=== PATIENT | female | born 1950 | race Caucasian/White ===

== ENCOUNTER → 2019-01-16 10:48 | Outpatient (CLI) | payer MEDICARE, OTHER, SELFPAY ==
[2019-01-16 11:59] LABS: Free T4, Direct Thyroxine 1.32 ng/dL (0.78-2.19)
[2019-01-16 12:13] LABS: Thyroid Stimulating Hormone 0.86 uIU/mL (0.47-4.68)
== END ==
PROVIDERS: PCP Student in an Organized Health Care Education/Training Program; Visit Provider Student in an Organized Health Care Education/Training Program
DX: E03.9 Hypothyroidism, unspecified (principal); E55.9 Vitamin D deficiency, unspecified
CPT/HCPCS: 36415; 82306; 84439; 84443

== ENCOUNTER → 2019-02-13 13:46 | Outpatient (CLI) | payer MEDICARE, OTHER, SELFPAY | PROVIDERS: PCP Student in an Organized Health Care Education/Training Program; Visit Provider Student in an Organized Health Care Education/Training Program | DX: Z13.820 Encounter for screening for osteoporosis (principal); Z78.0 Asymptomatic menopausal state; E07.9 Disorder of thyroid, unspecified; Z90.722 Acquired absence of ovaries, bilateral; Z87.891 Personal history of nicotine dependence | CPT/HCPCS: 77080; 77081 ==

== ENCOUNTER → 2019-02-26 09:43 | Outpatient (CLI) | payer MEDICARE, OTHER, SELFPAY ==
--- NOTE | 2019-02-26 09:54 | DI.CT.S_ITS ---
PROCEDURE: CT LUMBAR SPINE WO CON INDICATIONS: Low back pain with Right-sided leg weakness TECHNIQUE: Noncontrast 3 mm thick sections acquired from the T12 level to the sacrum. Sagittal and coronal reformats were constructed. For radiation dose reduction, the following was used: automated exposure control. COMPARISON: [facility], , [id number] W PEL IF PERFORMED, 11/30/2017, 10:01. FINDINGS: Image quality: Diagnostic, with note made of motion artifact. Bones: No acute vertebral body compression fractures. No suspicious lytic or blastic bony lesions. Central spinal caliber is of normal overall caliber. No pars defects. There is minimal levoconvex lumbar scoliotic curvature seen. No significant AP alignment abnormality is seen. A right hip arthroplasty can be seen on the photoflash powder mixer image. T12-L1: Unremarkable. L1-L2: No significant abnormality is seen. L2-L3: The disc height is well-preserved. Mild generalized disc bulge is seen. Ysil-ya-ihblapoz bilateral neural foraminal narrowing can be seen. Ttgv-dz-htrfegne central canal narrowing is seen, as on series 4 image 43. L3-L4: The disc height is well preserved. Mild to moderate disc bulge is seen. There is moderate right-sided and mild to moderate left-sided facet hypertrophy seen. Mild bilateral neural foraminal narrowing is seen. Rsxe-nt-oakjnwll central canal narrowing is seen. L4-L5: The disc height is well-preserved. Moderate disc bulge is seen, with a central/right disc protrusion, as on series 4 image 67. At least moderate facet hypertrophy is seen. Tgvy-ep-koyzuacz bilateral neural foraminal narrowing is seen, left worse than right. L5-S1: The disc height is well-preserved. Vacuum disc phenomenon is seen at this level. Mild generalized disc bulge is seen. Moderate facet joint hypertrophy is seen. There is moderate right-sided and mild left-sided neural foraminal narrowing seen. Mild central canal narrowing is seen. Soft tissues: No retroperitoneal masses or hematomas. Visualized aorta is normal in caliber. Atherosclerotic calcification is noted. Cholecystectomy clips are seen. IMPRESSION: Lumbar spine degenerative changes are seen, which are most prominent at the L4-L5 level. Dictated by: Mayank Luu M.D. on 02/26/2019 at 9:39 Approved by: Mayank Luu M.D. on 02/26/2019 at 9:43
== END ==
PROVIDERS: PCP Student in an Organized Health Care Education/Training Program; Visit Provider Student in an Organized Health Care Education/Training Program
DX: M54.5 Low back pain (principal); M47.26 Other spondylosis with radiculopathy, lumbar region
CPT/HCPCS: 72131

== ENCOUNTER 2019-03-22 06:38 | Day surgery (SDC) | payer MEDICARE, OTHER, SELFPAY ==
[2019-03-22] VITALS (8 sets, daily range): BP systolic 76–113; BP diastolic 47–63; PULSE 55–65; RESP 12–16; TEMP 36.3–36.5; O2SAT 95–96; BMI 40.6
--- NOTE | 2019-03-22 07:30 | PM.HP.1 ---
History of Present Illness Date Patient Seen: 03/22/19 Time Patient Seen: 07:30 Chief complaint: [id number] Narrative: 69yo F for surveillance colonoscopy. Has had two scopes 5 years apart, first found polyps but she does not believe second did. Maternal GM of CRC in her 80s and mother had numerous polyps. No symptoms in patient; she has long standing IBS but no recent changes. Patient History Medical History COPD (chronic obstructive pulmonary disease) (Chronic) Cardiac arrhythmia (Chronic) Eczema (Chronic) History of degenerative joint disease (Chronic) Hypertension (Chronic) Hypothyroidism (Chronic) Osteoarthritis (Chronic) Plantar warts (Chronic) Tubular adenoma (Chronic) Asthma (Resolved) Surgical History Anesthesia (Resolved) Colon polyps (Resolved ~2007) History of colonoscopy (Resolved) History of ectopic (Resolved) History of cataract removal with insertion of prosthetic lens History of hip replacement (~2012) History of third molar tooth extraction (~1971) Status post cholecystectomy (~1989) Status post hysterectomy (~2005) Family History (Updated 05/31/14 @ 00:00 by Conversion Provider) Father Alcoholism Heart disease Hypertension Stroke Grandmother Colorectal cancer Mother Colon polyps Social History household members: spouse Smoking Status: Former smoker Family & Social History Family History Father Alcoholism Heart disease Hypertension Stroke Grandmother Colorectal cancer Mother Colon polyps Social History: household members spouse Tobacco & Substance use: Smoking Status Former smoker Meds Home Medications Medication Instructions Recorded Confirmed Type CA PANTOTHENATE/FE/FOLIC ACI 1 tab PO Q DAY #0 02/23/12 02/21/19 History (#UNICAP PLUS IRON) CALCIUM CARBONATE/VITAMIN D3 1 ctb PO Q DAY #0 02/23/12 02/21/19 History (Calcium 600 With Vit D Chew Tb) FLAXSEED (FLAXSEED OIL) 1 cap PO Q DAY #0 02/23/12 02/21/19 History [VITAMIN C] Q DAY #0 02/23/12 02/21/19 History biotin #0 05/23/13 02/21/19 History albuterol sulfate HFA 90 2 inhalation INHALATION Q4-6H PRN 12/12/18 02/21/19 Rx mcg/actuation aerosol inhaler #1 each atorvastatin 20 mg tablet 20 mg PO HS #90 tab 12/12/18 02/21/19 Rx fluoxetine 20 mg capsule 20 mg PO QDAY #90 cap 12/12/18 02/21/19 Rx fluticasone propionate 100 100 mcg INHALATION BID #60 each 12/12/18 02/21/19 Rx mcg/actuation blister powder for inhalation metoprolol tartrate 50 mg tablet 50 mg PO BID #180 tab 12/12/18 02/21/19 Rx levothyroxine 112 mcg tablet 112 mcg PO QDAY #90 tab 01/26/19 02/21/19 Rx Allergies Allergy/AdvReac Type Severity Reaction Status Date / Time Penicillins [PENICILLINS] Allergy Unknown Unverified 02/21/19 15:19 hydrocodone [HYDROCODONE] AdvReac Mild NAUSEA, Unverified 02/21/19 15:19 DIZZINESS Review of Systems Constitutional Constitutional: Reports as per HPI Exam Vital Signs (past 8 hours): - 03/22/19 07:19 Temperature 97.4 F L Pulse Rate 65 Respiratory Rate 16 Blood Pressure 113/63 Pulse Oximetry 96 Oxygen Delivery Method Room Air Narrative Exam Narrative: AAO, NAD, morbidly obese female EOMI, MMM; 1mm dark spot on lower lip unlabored RA soft, nt/nd MAEW Assessment & Plan (1) History of colon polyps: Current visit: Yes Status: Acute Assessment & Plan narrative: - surveillance colonoscopy --> all R/B/A discussed and pt wishes to proceed - pointed out dark spot on lip, not highly concerning but pt had not noticed --> encouraged visit to derm for skin check as patient has not seen one and notes that in aging she has many changing and new skin spots
[2019-03-22] MEDS: SODIUM CHLORIDE 0.9% 1,000 ML 200 ML IV (08:00)
[2019-03-22] MEDS: fentaNYL 250 MCG/5 ML INJ IV (08:12)
[2019-03-22] MEDS: MIDAZOLAM 5 MG/5 ML VIAL IV (08:13)
--- NOTE | 2019-03-22 08:30 | SUR.PHASEI ---
assumed care of pt at this time. pt sitting up, drinking coffee and talking to RN. pt abd soft and denies any pain/discomfort at this time.
--- NOTE | 2019-03-22 14:47 | PM.OP.ENDO ---
Operative Date/Time/Diagnoses Date of procedure: 03/22/19 Time of procedure: 08:28 Pre-op diagnosis: History of polyps Post-op diagnosis: same Procedure & Clinicians Study performed: Surveillance Colonoscopy Same procedure as scheduled: Yes Indications: 69yo F with history of colon polyps and CRC in a maternal grandmother presents for surveillance colonscopy. Surgeon: Katie Buckley Procedure Notes SCOAP/Timeout: 747 Procedure in detail: After obtaining informed consent, the patient was brought to the GI suite and placed in the left lateral decubitus position on the examination table. After placement of appropriate monitors, the patient was given incremental doses of Versed and Fentanyl until an appropriate level of sedation was achieved. A time out was held per SCOAP protocol. A digital rectal examination was performed and did not reveal any masses or obstructing lesions but small external hemorrhoids are noted. The colonoscope was gently passed into the patient's anus and the entire colon navigated to the level of the cecum with minimal difficulty. Prep was adequate. Once in the cecum, the scope was slowly withdrawn being sure to go before and beyond all mucosal folds and prominences as able to get a thorough examination. No masses or polyps are noted. No other abnormalities are noted. At the level of the rectal vault, the scope was retroflexed and the internal anal canal was examined. The scope was straightened and air aspirated from the colon. The instrument was removed from the patient's body and the procedure was concluded. The patient was allowed to awaken from sedation without difficulty and taken to the post-anesthesia care unit in good condition. Scope withdrawal time: 10 min Sedation minutes: 24 Specimen(s): none sent Complications: none Impression: No abnormalities. FU in 5 years. Despite sedation of 5mg of versed and 175mg of fentanyl, patient was fairly awake and uncomfortable through much of the procedure and may benefit from propofol at future procedures. Recommendations: Colonscopy in 5 years Follow up: as needed Disposition: PACU
== END 2019-03-22 09:20 | disposition home or self-care (01) ==
PROVIDERS: PCP Student in an Organized Health Care Education/Training Program; Visit Provider Surgery
PROC: 0DJD8ZZ Inspection of Lower Intestinal Tract, Via Natural or Artificial Opening Endoscopic (ICD-10-PCS; CPT 45378; principal; 2019-03-22 07:45)
DX: Z86.010 Personal history of colon polyps (principal); Z80.0 Family history of malignant neoplasm of digestive organs; J44.9 Chronic obstructive pulmonary disease, unspecified; I49.9 Cardiac arrhythmia, unspecified; I10 Essential (primary) hypertension; E03.9 Hypothyroidism, unspecified
CPT/HCPCS: G0105; 99152; J2250; J3010

== ENCOUNTER → 2019-08-13 12:41 | Outpatient (CLI) | payer MEDICARE, OTHER, SELFPAY ==
--- NOTE | 2019-08-13 12:42 | DI.MG.S_ITS ---
BILATERAL DIGITAL SCREENING MAMMOGRAM 3D/2D WITH CAD: 08/13/2019 CLINICAL: Routine screening. Comparison is made to exams dated: 08/08/2017 mammogram, 08/05/2016 mammogram, 07/25/2015 mammogram, 07/24/2014 mammogram, and 06/27/2013 mammogram - [facility]. The tissue of both breasts is predominantly fatty. Current study was also evaluated with a Computer Aided Detection (CAD) system. No significant masses, calcifications, or other findings are seen in either breast. There has been no significant interval change. IMPRESSION: NEGATIVE There is no mammographic evidence of malignancy. A 1 year screening mammogram is recommended. This exam was interpreted at Station ID: [id number]. NOTE: For mammograms, a report in lay terms will be sent to the patient. Approximately 15% of breast malignancies will not be visualized mammographically. In the management of a palpable breast mass, a negative mammogram must not discourage biopsy of a clinically suspicious lesion. Electronically Signed By: Quinton espitia/leonardo:08/13/2019 13:35:30 letter sent: Normal Exam ACR BI-RADS Category 1: Negative [id number]
== END ==
PROVIDERS: PCP Student in an Organized Health Care Education/Training Program; Visit Provider Student in an Organized Health Care Education/Training Program
DX: Z12.31 Encounter for screening mammogram for malignant neoplasm of breast (principal)
CPT/HCPCS: 77063; 77067

== ENCOUNTER 2019-10-16 12:21 | Emergency (ER) | payer MEDICARE, OTHER, SELFPAY ==
--- NOTE | 2019-10-16 12:25 | DI.RAD.S_ITS ---
PROCEDURE: XR CHEST 1V INDICATIONS: exertional dyspnea TECHNIQUE: One view of the chest was acquired. COMPARISON: [facility], CHEST 1 VIEW, 03/24/2014, 6:32. [facility], CHEST 2 VIEW, 01/16/2008, 9:33. FINDINGS: Surgical changes and devices: None. Lungs and pleura: Lungs are clear. No pleural effusions or pneumothorax. Mediastinum: Mediastinal contours appear normal. Heart size is normal. Bones and chest wall: No suspicious bony lesions. Overlying soft tissues appear unremarkable. IMPRESSION: Normal for age, source of current exertional dyspnea symptoms is not seen. Dictated by: Raphael Cox M.D. on 10/16/2019 at 12:56 Approved by: Raphael Cox M.D. on 10/16/2019 at 12:57
[2019-10-16 12:40] LABS: Add Manual Diff / Slide Review NO; Basophils Absolute Auto 100 /uL (0-100); Eosinophils Absolute Auto 100 /uL (0-450); Eosinophils Percent Auto 1.6 % (2-4); Hematocrit 39.5 % (36-46); Hemoglobin 13.3 g/dL (12.0-16.0); Lymphocytes Absolute Auto 1800 /uL (1100-4500); Lymphocytes Percent Auto 19.9 % (25-40); Mean Corpuscular HGB Conc 33.7 % (30-36); Mean Corpuscular Hemoglobin 32.6 PG (26-34); Mean Corpuscular Volume 96.6 fL (80-100); Monocytes Absolute Auto 500 /uL (0-900); Neutrophils Absolute Auto 6300 /uL (1500-7000); Neutrophils Percent Auto 71.5 % (50-75); Platelet Count 365 X10^3/uL (150-400); Red Blood Cell Count 4.09 X10^6/uL (4.0-5.2); Red Cell Distribution Width 12.9 % (11.6-14.8); White Blood Cell Count 8.8 X10^3/uL (4.5-11.0)
[2019-10-16 12:42] VITALS: BP 153/70; PULSE 76; RESP 14; TEMP 36.8; O2SAT 96
--- NOTE | 2019-10-16 12:46 | ED_ITS ---
HPI - Weakness <Mirela Tinsley PA-C - Last Filed: 10/16/19 14:57> General Chief complaint: Weakness Stated complaint: SOB, PALPITATIONS, FATIGUE, TINGLING IN HAND/FEET Time Seen by Provider: 10/16/19 12:24 Source: patient and other (Clinic PRIMARY CLINICIAN) Mode of arrival: Ambulatory Limitations: no limitations History of Present Illness HPI Narrative: This 69-year-old female is sent from her primary care clinic due to concern for cardiac issue. They were concerned about 4-5 day history of exertional dyspnea. Patient states that for the last 4-5 days, she has been feeling more generalized fatigue even though she is getting enough sleep. She states that she runs ?out of steam? rather than just running at breath, for example walking through the house she will want to sit down and rest, she states not necessarily due to her breathing, just feels tired all over. She does have a history of asthma and COPD, states that she does have a rescue inhaler at home but has not felt the need to use it. She has not had any cough or fever, nor any recent illness or exposure. She denies any chest pain. She states that she does have a history of paroxysmal tachycardia but this tends to be well co ntrolled on her current blood pressure medication, she states no recent symptoms. She denies any nausea, abdominal pain or vomiting and states she has been eating normally. She states that she has not noted any new edema or pain in her extremities. She denies any urinary symptoms. She states that 2 and half weeks ago after she had been doing some lifting and bending, she had some left gluteal area pain but that seemed to resolve with time. She does have a history of some lumbar disc disease. She denies any other new complaints on systems review, states her main concern was noticing generalized fatigue Related Data Home Medications Medication Instructions Recorded Confirmed CA PANTOTHENATE/FE/FOLIC ACI 1 tab PO Q DAY #0 02/23/12 10/16/19 (#UNICAP PLUS IRON) CALCIUM CARBONATE/VITAMIN D3 1 ctb PO Q DAY #0 02/23/12 10/16/19 (Calcium 600 With Vit D Chew Tb) FLAXSEED (FLAXSEED OIL) 1 cap PO Q DAY #0 02/23/12 10/16/19 [VITAMIN C] Q DAY #0 02/23/12 10/16/19 biotin #0 05/23/13 10/16/19 atorvastatin [Lipitor] 20 mg PO BEDTIME 10/16/19 10/16/19 fluoxetine 20 mg PO DAILY 10/16/19 10/16/19 levothyroxine 112 mcg PO DAILY 10/16/19 10/16/19 Previous Rx's Medication Instructions Recorded albuterol sulfate 90 mcg/actuation 2 inhalation INHALATION Q4-6H PRN 12/12/18 aerosol inhaler #1 each metoprolol tartrate 50 mg tablet 50 mg PO BID #180 tab 12/12/18 fluticasone propionate 100 100 mcg INHALATION BID #60 each 06/25/19 mcg/actuation blister powder for inhalation Allergies Allergy/AdvReac Type Severity Reaction Status Date / Time Penicillins [PENICILLINS] Allergy Unknown Unverified 10/16/19 11:45 hydrocodone [HYDROCODONE] AdvReac Mild NAUSEA, Unverified 10/16/19 11:45 DIZZINESS Review of Systems <Mirela Tinsley PA-C - Last Filed: 10/16/19 14:57> Review of Systems ROS Unobtainable: All systems reviewed & are unremarkable except as noted in HPI and below Patient History <Mirela Tinsley PA-C - Last Filed: 10/16/19 14:57> Medical History Asthma (Resolved) Cardiac arrhythmia (Chronic) COPD (chronic obstructive pulmonary disease) (Chronic) Eczema (Chronic) History of degenerative joint disease (Chronic) Hypertension (Chronic) Hypothyroidism (Chronic) Osteoarthritis (Chronic) Plantar warts (Chronic) Tubular adenoma (Chronic) Social History household members: spouse Smoking Status: Former smoker Substance Use Type: does not use Exam <Mirela Tinsley PA-C - Last Filed: 10/16/19 14:57> Narrative Exam Narrative: GENERAL APPEARANCE: Patient resting comfortably, in no distress. HEENT: PERRL, EOMI, normal oropharynx NECK: Supple, no masses noted LUNGS: Clear to auscultation bilaterally. No cough on exam HEART: Rate and rhythm regular, normal S1 and S2, no S3 or S4. ABDOMEN: Soft, nontender, nondistended, bowel sounds present x 4 quadrants, no masses palpable EXTREMITIES: No edema, no cyanosis, numerous varicosities noted DERMATOLOGIC: No exanthem NEUROLOGIC: Alert and oriented with normal speech and coordination Initial Vital Signs Initial Vital Signs: Vital Signs Temperature 98.2 F 10/16/19 12:42 Pulse Rate 76 10/16/19 12:42 Respiratory Rate 14 10/16/19 12:42 Blood Pressure 153/70 H 10/16/19 12:42 Pulse Oximetry 96 10/16/19 12:42 <Karin Witt DO - Last Filed: 10/17/19 07:27> Initial Vital Signs Initial Vital Signs: Vital Signs Temperature 98.2 F 10/16/19 12:42 Pulse Rate 76 10/16/19 12:42 Respiratory Rate 14 10/16/19 12:42 Blood Pressure 153/70 H 10/16/19 12:42 Pulse Oximetry 96 10/16/19 12:42 Course <Mirela Tinsley PA-C - Last Filed: 10/16/19 14:57> Course Additional Information: Patient states she has had generalized fatigue off and on for about the last 5 days which cause her to want to rest with activity. She states this is more generalized sensation rather than isolated dyspnea. She has not felt a need to use her inhaler. No acute findings on cardiac workup today, no change with nebulizer treatment. She has not had any acute changes, so discussed reasonable for her to monitor at home however does need follow-up with PCP office for further evaluation and determine whether further workup such as echocardiogram may be needed, or whether medication changes may be needed as her resting heart rate is on the low side. She is agreeable with this plan as well as plan to return if any acute changes or worsening symptoms in the interim Orders Ordered: Discontinued Medications Albuterol/Ipratropium (Duoneb) 3 ml INH NOW ONE Stop: 10/16/19 12:47 Last Admin: 10/16/19 13:07 Dose: 3 ml Documented by: LATOYA Vital Signs Vital signs: Vital Signs - 8 hr 10/16/19 12:42 10/16/19 13:28 10/16/19 13:34 Temperature 98.2 F Pulse Rate 76 57 L 56 L Respiratory Rate 14 23 16 Blood Pressure 153/70 H Blood Pressure [Right Arm] 136/86 Pulse Oximetry 96 100 97 10/16/19 14:04 Temperature Pulse Rate 55 L Respiratory Rate 14 Blood Pressure Blood Pressure [Right Arm] 121/47 L Pulse Oximetry 97 <Karin Witt DO - Last Filed: 10/17/19 07:27> Orders Ordered: Discontinued Medications Albuterol/Ipratropium (Duoneb) 3 ml INH NOW ONE Stop: 10/16/19 12:47 Last Admin: 10/16/19 13:07 Dose: 3 ml Documented by: LATOYA Vital Signs Vital signs: Vital Signs - 8 hr 10/16/19 12:42 10/16/19 13:28 10/16/19 13:34 Temperature 98.2 F Pulse Rate 76 57 L 56 L Respiratory Rate 14 23 16 Blood Pressure 153/70 H Blood Pressure [Right Arm] 136/86 Pulse Oximetry 96 100 97 10/16/19 14:04 Temperature Pulse Rate 55 L Respiratory Rate 14 Blood Pressure Blood Pressure [Right Arm] 121/47 L Pulse Oximetry 97 MDM - Weakness <Mirela Tinsley PA-C - Last Filed: 10/16/19 14:57> Lab Data Attestation: I reviewed the patient's lab results. Result diagrams: 10/16/19 12:30 10/16/19 12:30 Labs: Lab Results 10/16/19 10/16/19 10/16/19 Range/Units 12:30 12:30 12:30 WBC 8.8 (4.5-11.0) X10^3/uL RBC 4.09 (4.0-5.2) X10^6/uL Hgb 13.3 (12.0-16.0) g/dL Hct 39.5 (36-46) % MCV 96.6 (80-100) fL MCH 32.6 (26-34) PG MCHC 33.7 (30-36) % RDW 12.9 (11.6-14.8) % Plt Count 365 (150-400) X10^3/uL Neut % (Auto) 71.5 (50-75) % Lymph % (Auto) 19.9 L (25-40) % Alpine % (Auto) 6.0 (3-14) % Eos % (Auto) 1.6 L (2-4) % Baso % (Auto) 1.0 (0-2) % Neut # (Auto) 6300 (3424-6219) /uL Lymph # (Auto) 1800 (4009-4445) /uL Alpine # (Auto) 500 (0-900) /uL Eos # (Auto) 100 (0-450) /uL Baso # (Auto) 100 (0-100) /uL Sodium 141 (137-145) mmol/L Potassium 4.9 (3.4-5.1) mmol/L Chloride 104 (98-107) mmol/L Carbon Dioxide 26 (22-32) mmol/L BUN 20 H (7-17) mg/dL Creatinine 1.10 H (0.52-1.04) mg/dL Estimated GFR 49.4 L (>60) mL/min BUN/Creatinine Ratio 18.2 (6-22) Glucose 100 (80-110) mg/dL Calcium 9.7 (8.4-10.2) mg/dL Magnesium 1.9 (1.6-2.3) mg/dL Total Bilirubin 0.6 (0.2-1.3) mg/dL AST 32 (14-36) IU/L ALT 20 (<35) IU/L Alkaline Phosphatase 140 H (38-126) U/L Total Creatine Kinase 47 (30-135) U/L CK-MB (CK-2) TNP CK-MB (CK-2) Rel Index TNP Troponin I < 0.012 (0.01-0.034) ng/mL B-Natriuretic Peptide < 100 (<100) Total Protein 7.6 (6.3-8.2) g/dL Albumin 4.5 (3.5-5.0) g/dL Globulin 3.1 (1.7-4.1) g/dL Albumin/Globulin Ratio 1.5 (1.0-2.8) Imaging Data Chest x-ray: Radiologist's impression: [address] [id number] XRay Report Signed Patient: Naty Pacheco JMR#: [id number] : 1Acct:[id number] Age/Sex: 69 / FDate of Service: 10/16/19 Loc: ED Accession Number: [id number] Procedure: XR chest 1V Ordering Provider: Mirela Tinsley P.A-C PROCEDURE: XR CHEST 1V INDICATIONS: exertional dyspnea TECHNIQUE: One view of the chest was acquired. COMPARISON: [facility], , CHEST 1 VIEW, 03/24/2014, 6:32. [facility], , CHEST 2 VIEW, 01/16/2008, 9:33. FINDINGS: Surgical changes and devices: None. Lungs and pleura: Lungs are clear. No pleural effusions or pneumothorax. Mediastinum: Mediastinal contours appear normal. Heart size is normal. Bones and chest wall: No suspicious bony lesions. Overlying soft tissues appear unremarkable. IMPRESSION: Normal for age, source of current exertional dyspnea symptoms is not seen. Dictated by: Raphael Cox M.D. on 10/16/2019 at 12:56 Approved by: Raphael Cox M.D. on 10/16/2019 at 12:57 <Karin Witt DO - Last Filed: 10/17/19 07:27> Lab Data Labs: Lab Results 10/16/19 10/16/19 10/16/19 Range/Units 12:30 12:30 12:30 WBC 8.8 (4.5-11.0) X10^3/uL RBC 4.09 (4.0-5.2) X10^6/uL Hgb 13.3 (12.0-16.0) g/dL Hct 39.5 (36-46) % MCV 96.6 (80-100) fL MCH 32.6 (26-34) PG MCHC 33.7 (30-36) % RDW 12.9 (11.6-14.8) % Plt Count 365 (150-400) X10^3/uL Neut % (Auto) 71.5 (50-75) % Lymph % (Auto) 19.9 L (25-40) % Alpine % (Auto) 6.0 (3-14) % Eos % (Auto) 1.6 L (2-4) % Baso % (Auto) 1.0 (0-2) % Neut # (Auto) 6300 (6065-9166) /uL Lymph # (Auto) 1800 (2312-7263) /uL Alpine # (Auto) 500 (0-900) /uL Eos # (Auto) 100 (0-450) /uL Baso # (Auto) 100 (0-100) /uL Sodium 141 (137-145) mmol/L Potassium 4.9 (3.4-5.1) mmol/L Chloride 104 (98-107) mmol/L Carbon Dioxide 26 (22-32) mmol/L BUN 20 H (7-17) mg/dL Creatinine 1.10 H (0.52-1.04) mg/dL Estimated GFR 49.4 L (>60) mL/min BUN/Creatinine Ratio 18.2 (6-22) Glucose 100 (80-110) mg/dL Calcium 9.7 (8.4-10.2) mg/dL Magnesium 1.9 (1.6-2.3) mg/dL Total Bilirubin 0.6 (0.2-1.3) mg/dL AST 32 (14-36) IU/L ALT 20 (<35) IU/L Alkaline Phosphatase 140 H (38-126) U/L Total Creatine Kinase 47 (30-135) U/L CK-MB (CK-2) TNP CK-MB (CK-2) Rel Index TNP Troponin I < 0.012 (0.01-0.034) ng/mL B-Natriuretic Peptide < 100 (<100) Total Protein 7.6 (6.3-8.2) g/dL Albumin 4.5 (3.5-5.0) g/dL Globulin 3.1 (1.7-4.1) g/dL Albumin/Globulin Ratio 1.5 (1.0-2.8) Discharge Plan Departure Patient Disposition: Home Clinical Impression: Fatigue Qualifiers: Fatigue type: unspecified Qualified Code(s): R53.83 - Other fatigue Asthma Qualifiers: Asthma severity: moderate Asthma persistence: unspecified Asthma complication type: uncomplicated Qualified Code(s): J45.909 - Unspecified asthma, uncomplicated Discharge Date/Time: 10/16/19 14:17 Instructions: DI for Fatigue Activity Restrictions/Additional Instructions: The source of your fatigue is not clear today. There were no acute problems found on your lab work, chest x-ray or EKG, and since you are not feeling acutely worse it is reasonable to monitor at home. Please call your primary care office today and schedule a follow-up in the next few days so that you can determine whether further testing should be done or whether any medication dos age adjustments may be needed. As we discussed, you should return here if you have any acutely worsening symptoms or new symptoms such as chest pain in the interim. Prescriptions: No Action CA PANTOTHENATE/FE/FOLIC ACI (#UNICAP PLUS IRON) 1 tab PO Q DAY Qty: 0 RF: 0 [VITAMIN C] Q DAY Qty: 0 RF: 0 CALCIUM CARBONATE/VITAMIN D3 (Calcium 600 With Vit D Chew Tb) 1 ctb PO Q DAY Qty: 0 RF: 0 FLAXSEED (FLAXSEED OIL) 1 cap PO Q DAY Qty: 0 RF: 0 biotin 5 MG tablet Qty: 0 RF: 0 Flovent Diskus 100 mcg/actuation blister with device 100 mcg INHALATION BID Qty: 60 RF: 11 albuterol sulfate [Ventolin HFA] 90 mcg/actuation HFA aerosol inhaler 2 inhalation INHALATION Q4-6H PRN (Reason: shortness of breath or wheezing) Qty: 1 RF: 11 metoprolol tartrate 50 mg tablet 50 mg PO BID Qty: 180 RF: 3 atorvastatin [Lipitor] 20 mg tablet 20 mg PO BEDTIME RF: 0 fluoxetine 20 mg capsule 20 mg PO DAILY RF: 0 levothyroxine 112 mcg tablet 112 mcg PO DAILY RF: 0 Referrals: Bradley Sam MD [Primary Care Provider] -
[2019-10-16 12:50] LABS: Creatine Kinase 47 U/L (30-135); Magnesium 1.9 mg/dL (1.6-2.3)
[2019-10-16 12:51] LABS: Alanine Aminotransferase 20 IU/L (<35); Albumin 4.5 g/dL (3.5-5.0); Albumin Globulin Ratio 1.5 (1.0-2.8); Alkaline Phosphatase 140 U/L (38-126); Aspartate Aminotransferase 32 IU/L (14-36); BUN Creatinine Ratio 18.2 (6-22); Bilirubin Total 0.6 mg/dL (0.2-1.3); Blood Urea Nitrogen 20 mg/dL (7-17); Calcium 9.7 mg/dL (8.4-10.2); Carbon Dioxide 26 mmol/L (22-32); Chloride 104 mmol/L (98-107); Estimated Glomerular Filt Rate 49.4 mL/min (>60); Globulin 3.1 g/dL (1.7-4.1); Glucose 100 mg/dL (80-110); HEMOLYSIS 19 (0-50); Potassium 4.9 mmol/L (3.4-5.1); Sodium 141 mmol/L (137-145); Total Protein 7.6 g/dL (6.3-8.2)
[2019-10-16 13:02] LABS: B Type Natriuretic Peptide < 100 (<100)
[2019-10-16 13:03] LABS: Troponin I < 0.012 ng/mL (0.01-0.034)
[2019-10-16] MEDS: ALBUTEROL/IPRATROPIUM 3 ML AMPUL INH (13:07)
[2019-10-16 13:28] VITALS: BP 136/86; PULSE 57; RESP 23; O2SAT 100
[2019-10-16 13:34] VITALS: PULSE 56; RESP 16; O2SAT 97
[2019-10-16 14:04] VITALS: BP 121/47; PULSE 55; RESP 14; O2SAT 97
== END 2019-10-16 14:17 | disposition home or self-care (01) ==
PROVIDERS: Emergency Provider Internal Medicine; PCP Student in an Organized Health Care Education/Training Program
DX: R53.83 Other fatigue (principal); J45.909 Unspecified asthma, uncomplicated; R06.00 Dyspnea, unspecified
CPT/HCPCS: 36415; 71045; 80053; 82550; 83735; 83880; 84484; 85025; 93005; 94150; 94640; 99283; 99285

== ENCOUNTER → 2020-12-19 12:17 | Outpatient (CLI) | payer MEDICARE, OTHER, SELFPAY ==
[2020-12-19] MEDS: COVID-19 VACC #1, MRNA(MOD) 100 MCG/0.5 ML VIAL IM (12:28)
== END ==
PROVIDERS: PCP Student in an Organized Health Care Education/Training Program; Visit Provider Internal Medicine
DX: Z23 Encounter for immunization (principal)
CPT/HCPCS: 0011A; 91301

== ENCOUNTER → 2021-01-16 12:41 | Outpatient (CLI) | payer MEDICARE, OTHER, SELFPAY ==
[2021-01-16] MEDS: COVID-19 VACC #2, MRNA(MOD) 100 MCG/0.5 ML VIAL IM (12:48)
== END ==
PROVIDERS: PCP Student in an Organized Health Care Education/Training Program; Visit Provider Internal Medicine
DX: Z23 Encounter for immunization (principal)
CPT/HCPCS: 0012A; 91301

== ENCOUNTER → 2021-04-12 15:56 | Outpatient (CLI) | payer MEDICARE, OTHER, SELFPAY | PROVIDERS: PCP Student in an Organized Health Care Education/Training Program; Referring Provider Physician Assistant; Visit Provider Physician Assistant | DX: N30.01 Acute cystitis with hematuria (principal) | CPT/HCPCS: 87077; 87086; 87186 ==

== ENCOUNTER → 2021-07-24 10:53 | Outpatient (CLI) | payer MEDICARE, OTHER, SELFPAY ==
[2021-07-24 11:44] LABS: COVID19 -Nasal RAPID Negative (Negative)
== END ==
PROVIDERS: PCP Student in an Organized Health Care Education/Training Program; Referring Provider Internal Medicine; Visit Provider Internal Medicine
DX: Z20.822 Contact with and (suspected) exposure to COVID-19 (principal)
CPT/HCPCS: 87635; C9803

== ENCOUNTER → 2021-07-24 10:55 | Outpatient (CLI) | payer MEDICARE, OTHER, SELFPAY ==
--- NOTE | 2021-07-29 08:20 | PM.PFT.1 ---
Pulmonary Function Test Referral & Results Date Patient Seen: 07/24/21 Requesting provider: Bradley Sam Results: The spirometry demonstrates an FVC of 2.65 L which is 70% of predicted. The FEV1 was measured at 1.73 L which is 60% of predicted. The FEV1/FVC ratio was 65 which is 85% of predicted. Interpretation: This study demonstrates mild obstructive lung disease based on reduction FEV1. Shape a flow volume loop also supports diagnosis of obstructive lung disease Compared to PFTs performed in August 2017, current study is minimally changed. Previous FEV1 was 1.97 L currently 1.73 L. on previous study patient had only minimal benefit following bronchodilator and lung volumes were probably preserved. Clinical correlation suggested
== END ==
PROVIDERS: PCP Student in an Organized Health Care Education/Training Program; Referring Provider Student in an Organized Health Care Education/Training Program; Visit Provider Student in an Organized Health Care Education/Training Program
DX: J44.9 Chronic obstructive pulmonary disease, unspecified (principal); Z87.891 Personal history of nicotine dependence; Z20.822 Contact with and (suspected) exposure to COVID-19
CPT/HCPCS: 87635; 94010; C9803

== ENCOUNTER → 2021-08-24 11:28 | Outpatient (CLI) | payer MEDICARE, OTHER, SELFPAY ==
--- NOTE | 2021-08-24 11:29 | DI.MG.S_ITS ---
BILATERAL DIGITAL SCREENING MAMMOGRAM 3D/2D WITH CAD: 08/24/2021 CLINICAL: Routine screening. Comparison is made to exams dated: 08/13/2019 mammogram, 08/08/2017 mammogram, and 08/05/2016 mammogram - [facility]. The tissue of both breasts is predominantly fatty. Current study was also evaluated with a Computer Aided Detection (CAD) system. No significant masses, calcifications, or other findings are seen in either breast. There has been no significant interval change. IMPRESSION: NEGATIVE There is no mammographic evidence of malignancy. A 1 year screening mammogram is recommended. This exam was interpreted at Station ID: [id number]. NOTE: For mammograms, a report in lay terms will be sent to the patient. Approximately 15% of breast malignancies will not be visualized mammographically. In the management of a palpable breast mass, a negative mammogram must not discourage biopsy of a clinically suspicious lesion. Electronically Signed By: Jesús Foster M.D., jr/leonardo:08/24/2021 11:52:39 letter sent: Normal Exam ACR BI-RADS Category 1: Negative 3341F
== END ==
PROVIDERS: PCP Student in an Organized Health Care Education/Training Program; Referring Provider Student in an Organized Health Care Education/Training Program; Visit Provider Student in an Organized Health Care Education/Training Program
DX: Z12.31 Encounter for screening mammogram for malignant neoplasm of breast (principal); Z78.0 Asymptomatic menopausal state; E07.9 Disorder of thyroid, unspecified; Z90.722 Acquired absence of ovaries, bilateral; Z87.891 Personal history of nicotine dependence
CPT/HCPCS: 77063; 77067; 77080

== ENCOUNTER → 2021-09-25 11:17 | Outpatient (CLI) | payer MEDICARE, OTHER, SELFPAY ==
[2021-09-25] MEDS: COVID-19 VACC #3, MRNA(MOD) 50 MCG/0.25 ML VIAL IM (11:18)
== END ==
PROVIDERS: PCP Student in an Organized Health Care Education/Training Program; Visit Provider Internal Medicine
DX: Z23 Encounter for immunization (principal)
CPT/HCPCS: 0013A; 91301

== ENCOUNTER → 2022-05-05 10:56 | Outpatient (CLI) | payer MEDICARE, OTHER, SELFPAY ==
[2022-05-05 12:31] LABS: Blood Urea Nitrogen 19 mg/dL (7-17); Carbon Dioxide 27 mmol/L (22-32); Chloride 104 mmol/L (98-107); Cholesterol 178 mg/dL (140-199); Estimated Glomerular Filt Rate 53 mL/min (>60); Glucose 101 mg/dL (80-110); HDL Cholesterol 42 mg/dL (40-60); HEMOLYSIS < 15 (0-50); LDL Cholesterol Calculated 109 mg/dL (<100); Potassium 4.6 mmol/L (3.4-5.1); Sodium 139 mmol/L (137-145); Triglycerides 136 mg/dL (35-150)
[2022-05-05 13:48] LABS: Free T4, Direct Thyroxine 0.72 ng/dL (0.78-2.19)
== END ==
PROVIDERS: PCP Student in an Organized Health Care Education/Training Program; Referring Provider Student in an Organized Health Care Education/Training Program; Visit Provider Student in an Organized Health Care Education/Training Program
DX: I10 Essential (primary) hypertension (principal); E78.5 Hyperlipidemia, unspecified; E03.9 Hypothyroidism, unspecified
CPT/HCPCS: 36415; 80048; 80061; 84439; 84443

== ENCOUNTER → 2022-08-11 17:49 | Outpatient (CLI) | payer MEDICARE, OTHER, SELFPAY ==
[2022-08-11 18:23] LABS: Blood Urea Nitrogen 21 mg/dL (7-17); Calcium 9.4 mg/dL (8.4-10.2); Carbon Dioxide 26 mmol/L (22-32); Chloride 101 mmol/L (98-107); Cholesterol 158 mg/dL (140-199); Estimated Glomerular Filt Rate > 60 mL/min (>60); Glucose 105 mg/dL (80-110); HDL Cholesterol 35 mg/dL (40-60); HEMOLYSIS < 15 (0-50); LDL Cholesterol Calculated 93 mg/dL (<100); Potassium 3.9 mmol/L (3.4-5.1); Sodium 139 mmol/L (137-145); Triglycerides 150 mg/dL (35-150)
[2022-08-11 18:39] LABS: Free T3, Triiodothyronine Free 3.35 pg/mL (2.77-5.27); Free T4, Direct Thyroxine 1.47 ng/dL (0.78-2.19)
[2022-08-11 18:52] LABS: Thyroid Stimulating Hormone 2.03 uIU/mL (0.47-4.68)
== END ==
PROVIDERS: PCP Student in an Organized Health Care Education/Training Program; Referring Provider Student in an Organized Health Care Education/Training Program; Visit Provider Student in an Organized Health Care Education/Training Program
DX: E03.9 Hypothyroidism, unspecified (principal); I10 Essential (primary) hypertension; N18.31 Chronic kidney disease, stage 3a; E78.00 Pure hypercholesterolemia, unspecified
CPT/HCPCS: 36415; 80048; 80061; 84439; 84443; 84481

== ENCOUNTER → 2022-08-19 16:04 | Outpatient (CLI) | payer MEDICARE, OTHER, SELFPAY ==
--- NOTE | 2022-08-19 16:05 | DI.ECHO.S_ITS ---
[facility]---------+ [facility] +---------+ : : [address] : : : : [id number] : : : : Phone: [phone]---------+ Echocardiogram Report + + :Name: JAYDE NOYOLA Study Date: 08/19/2022 Height: 70 in : :[facility] ReadingLocation: Weight: 267 lb : : Gender: Female BSA: 2.4 m2 : :: 1950 Age: 72 yrs BP: 152/92 mmHg: :Reason For Study: Arrhythmia, SVT : :Ordering Physician: ARON, : :SAAD Performed By: Vinnie Lewis : :Referring: SAAD SHARP : + + Interpretation Summary The ejection fraction is estimated to be 55-60%. Grade I diastolic dysfuncton The right ventricle is normal in size and function. The right ventricular systolic pressure is estimated to be at least 18 mmHg based on an estimated right atrial pressure of 3 mm Hg. The ascending aorta is mildly enlarged 4.1cm. No significant valvular disease. Procedure: A two-dimensional transthoracic echocardiogram with color flow and Doppler was performed. The study quality was technically adequate. There is no prior echocardiogram noted for this patient. The patient was in normal sinus rhythm during the exam. Left Ventricle: The left ventricle is normal in size and wall thickness. Left ventricular systolic function is normal. The ejection fraction is estimated to be 55-60%. There are no focal wall motion abnormalities. Grade I diastolic dysfunciton. Right Ventricle: The right ventricle is normal in size and function. Atria: Both atria are normal in size. The interatrial septum grossly appears intact with no obvious evidence for an atrial septal defect. The atrial septum is aneurysmal. Mitral Valve: There is mild mitral annular calcification. There is no mitral regurgitation noted. Aortic Valve: The aortic valve is normal in structure and function. No aortic regurgitation is present. Tricuspid Valve: The tricuspid valve is normal in structure and function. There is a trace or physiologic amount of tricuspid regurgitation. The right ventricular systolic pressure is estimated to be at least 18 mmHg based on an estimated right atrial pressure of 3 mm Hg. Pulmonic Valve: The pulmonic valve is normal in structure and function. There is no pulmonic valvular regurgitation. Great Vessels: The aortic root is normal size. The ascending aorta is mildly enlarged. The IVC is of normal diameter and collapses greater than 50% with a sniff. This suggests a low right atrial pressure of 3 mm Hg. Pericardium/ Pleura There is no pericardial effusion. There is no pleural effusion. MMode/2D Measurements & Calculations LVIDd: 5.1 cm LVOT diam: 2.2 cm LVIDs: 3.5 cm Ao root diam: 3.5 cm FS: 31.4 % asc Aorta Diam: 4.1 cm IVSd: 1.0 cm LVPWd: 1.0 cm LV moss. diameter/BSA (cm/m^2): 2.2 LV sys. diameter/BSA (cm/m^2): 1.5 LA dimension: 3.7 cm RA long axis: 5.2 cm LA A2 area: 17.2 cm2 LA A4 area: 16.9 cm2 LA length (vol): 5.1 cm LA vol: 48.6 ml LA vol index: 20.6 ml/m2 TAPSE_phl: 2.2 cm Doppler Measurements & Calculations Ao V2 max: 136.0 cm/sec LVOT Max Ant: 112.0 cm/sec Ao V2 mean: 95.1 cm/sec LV V1 max P.0 mmHg Ao max P.0 mmHg LV V1 VTI: 23.5 cm Ao mean P.0 mmHg JUAN FRANCISCO(I,D): 3.6 cm2 Ao V2 VTI: 25.1 cm JUAN FRANCISCO(V,D): 3.1 cm2 sev ratio: 0.94 JUAN FRANCISCO indexed to BSA (cm^2/m^2): 1.5 MV E max ant: 46.7 cm/sec TR max ant: 195.0 cm/sec MV A max ant: 86.1 cm/sec TR max P.2 mmHg MV E/A: 0.54 Med Peak E' Ant: 5.2 cm/sec E/E' med: 8.9 Lat Peak E' Ant: 7.5 cm/sec E/E' lat: 6.2 E/e' average: 7.6 MV dec time: 0.30 sec SV(LVOT): 89.3 ml AV VR_phl: 0.82 JUAN FRANCISCO(VTI)/BSA_phl: 1.5 MV P1/2t-pr_phl: 89.0 msec Reading Physician:PM
== END ==
PROVIDERS: PCP Student in an Organized Health Care Education/Training Program; Referring Provider Student in an Organized Health Care Education/Training Program; Visit Provider Student in an Organized Health Care Education/Training Program
DX: R68.89 Other general symptoms and signs (principal); I47.1 Supraventricular tachycardia; I77.89 Other specified disorders of arteries and arterioles
CPT/HCPCS: 93306

== ENCOUNTER → 2022-08-23 13:26 | Outpatient (CLI) | payer MEDICARE, OTHER, SELFPAY ==
--- NOTE | 2022-08-30 14:40 | PM.CARDMON.1 ---
[employer] Report Referral & Results Date Patient Seen: 08/23/22 Requesting provider: Bradley Sam Indication: SVT Duration of monitoring (days): 3 Diary information: There were 8 patient triggered events and 7 patient diary entries All of these patient events were variably associated with (within 45 seconds) sinus rhythm, PACs, and SVT Data: Minimum heart rate identified was 54 beats per minute at 07:59 on 08/25/2022 Maximum sinus heart rate was 133 beats per minute at 18:35 on 08/23/2022 Maximum overall heart rate was 190 beats per minute at 14:08 on 08/23/2022 during a run of SVT Less than 1% of identified beats were ventricular or supraventricular ectopic in origin, which would classify them as rare. There were 43 runs of SVT with the fastest being a 12 minute 40 second run at a rate of 190 beats per minute this was also the longest run There were no pauses of 3 seconds or longer, or episodes of atrial fibrillation identified on this study Impression: This study demonstrates SVT as a possible source of patient's symptoms including a 12+ minute run as above Overall the number of patient events was relatively rare with 43 in the 36 hour period of time Clinical correlation suggested
== END ==
PROVIDERS: PCP Student in an Organized Health Care Education/Training Program; Referring Provider Student in an Organized Health Care Education/Training Program; Visit Provider Student in an Organized Health Care Education/Training Program
DX: I47.1 Supraventricular tachycardia (principal); R68.89 Other general symptoms and signs
CPT/HCPCS: 93242; 93244

== ENCOUNTER → 2022-09-13 11:51 | Outpatient (CLI) | payer MEDICARE, OTHER, SELFPAY ==
[2022-09-13 12:40] LABS: COVID19 -Nasal RAPID Negative (Negative)
--- NOTE | 2022-09-13 14:20 | PM.TREADMILL ---
Cardiac Stress Test Report Referral & Results Date Patient Seen: 09/13/22 Requesting provider: Bradley Sam Indication: Tachycardia Rest ECG: Unremarkable Procedure Note: After both written and verbal informed consent the patient had an IV started by the diagnostic imaging RN, and then was hooked up to the treadmill monitoring system. The Lexiscan material, and then the Cardiolite tracer, were administered sequentially. An additional 3 min was spent monitoring the patient while supine on the gurney. The patient had a normal response to all infused materials. Impression: Normal response to infuse materials, please see perfusion imaging for details regarding possible ischemia Please note: Actual ECG tracings can be found in the PACS system.
--- NOTE | 2022-09-14 18:08 | DI.NM.S_ITS ---
DATE OF SERVICE: 09/13/2022 PROCEDURE: Pharmacological perfusion study INDICATION: Fatigue, SVT, exercise intolerance. RADIOPHARMACEUTICAL: 25.7 millicurie technetium-99m Myoview IV was injected at stress and 24.8 millicurie technetium-99m Myoview IV was injected at rest. CARDIAC STRESS: The patient underwent IV Lexiscan perfusion study under the supervision of an attending staff using standard intravenous Lexiscan, as per protocol. She remained hemodynamically stable. Baseline blood pressure 140/80 and heart rate 82 beats per minute. Baseline rhythm sinus with right bundle branch block and diffuse low-voltage complexes. During stress, no new convincing ischemic changes or new significant arrhythmias seen. RAW DATA: There is significant breast shadow seen. There is increased subdiaphragmatic activity. The patient's weight is 264 pounds. GATED STUDY: Resting LV ejection fraction 75 and stress LV ejection fraction 79 percent. No obvious wall motion abnormalities. Resting end-diastolic volume 104 mL. TID ratio 0.91, which is within normal limits. Lung/heart ratio 0.34, which is within normal limits. MYOCARDIAL PERFUSION SCAN: Stress supine, resting supine and stress prone images were compared to each other. The stress supine and resting supine images revealed moderate-size, moderate to severely decreased perfusion of inferior wall extending into the inferoapex, which got improved during stress prone images predominantly in the base to mid inferior wall, however patient remained to have significant perfusion defect in the distal inferior wall extending into the inferoapex in the stress prone images, as well. CONCLUSION: This is an abnormal myocardial perfusion study consistent with a predominantly fixed distal inferior wall and inferoapical defect. Differential diagnosis distal inferior wall, inferoapical infarction, however, the patient's weight is 264 pounds. There is increased subdiaphragmatic activity and large breast shadow seen, which is engulfing the whole heart during raw images. Left ventricular function is preserved. No wall motion abnormality in the distal inferior wall or in the inferoapical segments. Hence, this could be persistent tissue attenuation artifact. No transient ischemic dilatation. In absence of reversible ischemia and preserved left ventricular function, overall low-risk myocardial perfusion scan. Correlate clinically. JuniorLaurah - Sonia/kameron doc#: [id number]/job#: [id number] dd: 09/14/2022 16:58:00 dt: 09/14/2022 17:56:00 DICTATING MD/COPIES TO: Abdulkadir Arriaga MD COPIES MNE: EDWIN;
== END ==
PROVIDERS: PCP Student in an Organized Health Care Education/Training Program; Referring Provider Student in an Organized Health Care Education/Training Program; Visit Provider Student in an Organized Health Care Education/Training Program
DX: I47.1 Supraventricular tachycardia (principal); R94.39 Abnormal result of other cardiovascular function study; R68.89 Other general symptoms and signs; R53.83 Other fatigue; Z20.822 Contact with and (suspected) exposure to COVID-19
CPT/HCPCS: 78452; 87635; 93016; 93017; 93018; A9502; J2785

== ENCOUNTER → 2022-10-18 14:39 | Outpatient (CLI) | payer MEDICARE, OTHER, SELFPAY ==
--- NOTE | 2022-10-18 | DI.MG.S_ITS ---
BILATERAL DIGITAL SCREENING MAMMOGRAM 3D/2D WITH CAD: 10/18/2022 CLINICAL: Routine screening. Comparison is made to exams dated: 08/24/2021 mammogram, 08/13/2019 mammogram, and 08/08/2017 mammogram - [facility]. There are scattered areas of fibroglandular density in both breasts (category b / 25%-50% glandular tissue). Current study was also evaluated with a Computer Aided Detection (CAD) system. No significant masses, calcifications, or other findings are seen in either breast. There has been no significant interval change. IMPRESSION: NEGATIVE There is no mammographic evidence of malignancy. A 1 year screening mammogram is recommended. Based on the Tyrer Cuzick model (a risk assessment model) the patient's lifetime risk is 4.3% and her 10 year risk is 2.9%. According to the ACR, ACS, and NCCN guidelines, an annual breast MRI exam along with mammogram is recommended if the patient's lifetime risk is 20% or greater. This exam was interpreted at Station ID: [id number]. NOTE: For mammograms, a report in lay terms will be sent to the patient. Approximately 15% of breast malignancies will not be visualized mammographically. In the management of a palpable breast mass, a negative mammogram must not discourage biopsy of a clinically suspicious lesion. Electronically Signed By: Jocelyne alonso/leonardo:10/18/2022 16:41:04 letter sent: Normal Exam ACR BI-RADS Category 1: Negative 3341F
== END ==
PROVIDERS: PCP Student in an Organized Health Care Education/Training Program; Referring Provider Student in an Organized Health Care Education/Training Program; Visit Provider Student in an Organized Health Care Education/Training Program
DX: Z12.31 Encounter for screening mammogram for malignant neoplasm of breast (principal)
CPT/HCPCS: 77063; 77067

== ENCOUNTER → 2023-07-30 11:31 | Outpatient (CLI) | payer MEDICARE, OTHER, SELFPAY ==
[2023-07-30 13:08] LABS: Add Manual Diff / Slide Review NO; Basophils Absolute Auto 100 /uL (0-100); Basophils Percent Auto 0.7 % (0-2); Eosinophils Absolute Auto 100 /uL (0-450); Eosinophils Percent Auto 1.6 % (2-4); Hematocrit 36.2 % (36-46); Hemoglobin 12.1 g/dL (12.0-16.0); Lymphocytes Absolute Auto 2100 /uL (1100-4500); Lymphocytes Percent Auto 24.8 % (25-40); Mean Corpuscular HGB Conc 33.5 % (30-36); Mean Corpuscular Hemoglobin 32.4 PG (26-34); Mean Corpuscular Volume 96.7 fL (80-100); Monocytes Absolute Auto 600 /uL (0-900); Monocytes Percent Auto 6.6 % (3-14); Neutrophils Absolute Auto 5700 /uL (1500-7000); Neutrophils Percent Auto 66.3 % (50-75); Platelet Count 460 X10^3/uL (150-400); Red Blood Cell Count 3.75 X10^6/uL (4.0-5.2); White Blood Cell Count 8.6 X10^3/uL (4.5-11.0)
[2023-07-30 13:23] LABS: Alanine Aminotransferase 30 IU/L (<35); Albumin 4.2 g/dL (3.5-5.0); Albumin Globulin Ratio 1.6 (1.0-2.8); Alkaline Phosphatase 139 U/L (38-126); Aspartate Aminotransferase 30 IU/L (14-36); BUN Creatinine Ratio 13.2 (6-22); Bilirubin Total 0.6 mg/dL (0.2-1.3); Blood Urea Nitrogen 14 mg/dL (7-17); Calcium 9.5 mg/dL (8.4-10.2); Carbon Dioxide 23 mmol/L (22-32); Chloride 100 mmol/L (98-107); Cholesterol 176 mg/dL (140-199); Estimated Glomerular Filt Rate 56 mL/min (>60); Globulin 2.7 g/dL (1.7-4.1); Glucose 108 mg/dL (80-110); HDL Cholesterol 48 mg/dL (40-60); HEMOLYSIS < 15 (0-50); LDL Cholesterol Calculated 97 mg/dL (<100); Potassium 4.6 mmol/L (3.4-5.1); Sodium 138 mmol/L (137-145); Total Protein 6.9 g/dL (6.3-8.2); Triglycerides 156 mg/dL (35-150)
[2023-07-30 13:39] LABS: Free T4, Direct Thyroxine 1.32 ng/dL (0.78-2.19)
[2023-07-30 13:52] LABS: Thyroid Stimulating Hormone 2.06 uIU/mL (0.47-4.68)
[2023-07-30 14:58] LABS: Vitamin D 25 Hydroxy (D3) 51.6 ng/mL (30.0-100.0)
== END ==
PROVIDERS: PCP Family Medicine; Referring Provider Family Medicine; Visit Provider Family Medicine
DX: E03.9 Hypothyroidism, unspecified (principal); N18.31 Chronic kidney disease, stage 3a; E78.5 Hyperlipidemia, unspecified; I10 Essential (primary) hypertension; I47.1 Supraventricular tachycardia; J44.9 Chronic obstructive pulmonary disease, unspecified
CPT/HCPCS: 36415; 80053; 80061; 82306; 84439; 84443; 84481; 85025; 86140

== ENCOUNTER → 2023-08-03 16:29 | Outpatient (CLI) | payer MEDICARE, OTHER, SELFPAY ==
[2023-08-03 20:53] LABS: Microalbumi Creatinin Ratio Ur 8.4 ug/mg CR (<30); Microalbumin Urine Random 1.7 mg/dL (0-1.6)
== END ==
PROVIDERS: PCP Family Medicine; Visit Provider Family Medicine
DX: E03.9 Hypothyroidism, unspecified (principal); E78.5 Hyperlipidemia, unspecified; I10 Essential (primary) hypertension; I47.1 Supraventricular tachycardia; J44.9 Chronic obstructive pulmonary disease, unspecified; N18.31 Chronic kidney disease, stage 3a
CPT/HCPCS: 82043; 82570

== ENCOUNTER → 2023-10-26 14:12 | Outpatient (CLI) | payer MEDICARE, OTHER, SELFPAY ==
--- NOTE | 2023-10-26 | DI.MG.S_ITS ---
BILATERAL DIGITAL SCREENING MAMMOGRAM 3D/2D WITH CAD: 10/26/2023 CLINICAL: Routine screening. Comparison is made to exams dated: 10/18/2022 mammogram, 08/24/2021 mammogram, 08/13/2019 mammogram, 08/08/2017 mammogram, and 08/05/2016 mammogram - [facility]. There are scattered areas of fibroglandular density in both breasts (category b / 25%-50% glandular tissue). Current study was also evaluated with a Computer Aided Detection (CAD) system. No significant masses, calcifications, or other findings are seen in either breast. There has been no significant interval change. IMPRESSION: NEGATIVE There is no mammographic evidence of malignancy. A 1 year screening mammogram is recommended. Based on the Tyrer Cuzick model (a risk assessment model) the patient's lifetime risk is 4.0% and her 10 year risk is 3.0%. According to the ACR, ACS, and NCCN guidelines, an annual breast MRI exam along with mammogram is recommended if the patient's lifetime risk is 20% or greater. This exam was interpreted at Station ID: [id number]. NOTE: For mammograms, a report in lay terms will be sent to the patient. Approximately 15% of breast malignancies will not be visualized mammographically. In the management of a palpable breast mass, a negative mammogram must not discourage biopsy of a clinically suspicious lesion. Electronically Signed By: Quinton espitia/leonardo:10/27/2023 08:04:57 letter sent: Normal Exam ACR BI-RADS Category 1: Negative 3341F
== END ==
PROVIDERS: PCP Family Medicine; Referring Provider Family Medicine; Visit Provider Family Medicine
DX: Z12.31 Encounter for screening mammogram for malignant neoplasm of breast (principal)
CPT/HCPCS: 77063; 77067

== ENCOUNTER → 2023-10-26 14:13 | Outpatient (CLI) | payer MEDICARE, OTHER, SELFPAY ==
--- NOTE | 2023-10-26 14:14 | DI.CT.S_ITS ---
PROCEDURE: CT LUNG LOW DOSE SCREENING INDICATIONS: Lung cancer screening TECHNIQUE: Noncontrast 2.0-2.5 mm thick sections acquired from the pulmonary apices to the posterior costophrenic angles. 7 mm thick axial MIP, and 5 mm coronal and sagittal reformats were then acquired. For radiation dose reduction, the following was used: automated exposure control, adjustment of mA and/or kV according to patient size. COMPARISON: None. FINDINGS: Image quality: Diagnostic, given the low radiation dose technique. Lungs and pleura: Right lower lobe subpleural solid pulmonary nodule versus nodular atelectasis measuring 4 mm (3/290). A few scattered subcentimeter calcified granulomas. No pleural effusion or pneumothorax. Patent central airways. Mediastinum: Heart size is normal. No pericardial effusion. No mediastinal adenopathy by size criteria. Thoracic aorta and central pulmonary arteries are normal in size. Mild calcification of the thoracic aorta. Esophagus is fluid-filled and mildly patulous. Small hiatal hernia. Bones and chest wall: No suspicious bony lesions. No vertebral body compression fractures. Moderate multilevel degenerative changes of the spine. No axillary or supraclavicular adenopathy by size criteria. No thyroid nodules which require sonographic follow up, per consensus guidelines. Upper Abdomen: Visualized upper abdomen solid organs and bowel loops demonstrate no pneumoperitoneum or acute findings. Cholecystectomy. Calcification of the abdominal aorta. IMPRESSION: 1. Right lower lobe subpleural solid pulmonary nodule versus nodular atelectasis measuring 4 mm. LUNG-RADS 2; continued annual screening, if eligible. 2. Esophagus is fluid-filled and mildly patulous which may predispose to aspiration. Dictated by: Shaq Cole M.D. on 10/26/2023 at 18:41 Approved by: Shaq Cole M.D. on 10/26/2023 at 18:51
== END ==
PROVIDERS: PCP Family Medicine; Referring Provider Family Medicine; Visit Provider Family Medicine
DX: Z12.31 Encounter for screening mammogram for malignant neoplasm of breast; Z12.2 Encounter for screening for malignant neoplasm of respiratory organs; F17.201 Nicotine dependence, unspecified, in remission
CPT/HCPCS: 71271; 77063; 77067

== ENCOUNTER → 2023-12-16 | Outpatient (CLI) | payer MEDICARE, OTHER, SELFPAY ==
--- NOTE | 2023-12-16 12:08 | DI.RAD.S_ITS ---
Bone Density Report Name: JAYDE NOYOLA Age: 73 Sex: Female Ethnicity: White Date of : 1950 Indication: postmenopausal; screening for osteoporosis; Referring Provider: JULIANA WILLIAMSON Study: Bone densitometry was performed. Exam Date: December 16, 2023 Accession number: [id number] Bone Density: Region BMD T-score Z-score Classification AP Spine(L1-L4) 1.005 -0.4 1.9 Normal Femoral Neck (Left) 0.845 0.0 1.9 Normal Total Hip (Left) 0.951 0.1 1.7 Normal Total Forearm (Left) 0.557 -0.4 1.8 Normal 1/3 Forearm (Left) 0.674 -0.3 2.0 Normal UD Forearm (Left) 0.429 -0.2 1.4 Normal World Health Organization criteria for BMD impression classify patients as: Normal (T-score at or above -1.0), Osteopenia (T-score between -1.0 and -2.5), or Osteoporosis (T-score at or below -2.5). 10-year Fracture Risk: FRAX not reported because: All T-scores for Spine Total, Hip Total, Femoral Neck at or above -1.0 Previous Exams: -- Region Exam Age BMD T-score BMD Change BMD Change Date g/cm2 vs Baseline vs Previous -- AP Spine (L1-L4) 12/16/2023 73 1.005 -0.4 -0.071 (-6.6%)# -0.062 (-5.8%)# 08/24/2021 71 1.067 0.2 -0.009 (-0.8%) -0.033 (-3.0%)* 02/13/2019 69 1.100 0.5 0.024 (2.2%)* 0.025 (2.3%)* 08/05/2016 66 1.075 0.3 -0.001 (-0.1%) -0.001 (-0.1%) 05/29/2009 59 1.076 0.3 Total Hip(Left) 12/16/2023 73 0.951 0.1 -0.126 (-11.7%)# -0.022 (-2.3%)# 08/24/2021 71 0.973 0.3 -0.104 (-9.7%)* -0.037 (-3.6%)* 02/13/2019 69 1.010 0.6 -0.067 (-6.2%)* -0.068 (-6.4%)* 08/05/2016 66 1.078 1.1 0.001 (0.1%) 0.001 (0.1%) 05/29/2009 59 1.077 1.1 -- *Denotes significance at 95% confidence level, LSC for AP Spine = 0.022 g/cm2, LSC for Total Hip = 0.027 g/cm2 # Denotes dissimilar scan types or analysis methods Impression: The patient has normal bone mass. No significant bone loss was observed. Discussion: BONE DENSITY IS ABOVE THE MINIMUM DESIRABLE LEVEL AT ALL SKELETAL SITES TESTED. This patient's bone mineral density is above the minimum desirable level (T-score -1.0 or better) at all sites measured. The patient should follow a healthful lifestyle (good nutrition with adequate calcium and vitamin D, and appropriate weight-bearing exercise). Follow-Up: Consider repeating this study in 5 years or sooner if there is some new clinical indication. Reported by: ZIYAD RAMIREZ M.D. on 12/16/2023 1:44:00 PM.
== END ==
PROVIDERS: PCP Family Medicine; Referring Provider Family Medicine; Visit Provider Family Medicine
DX: N95.9 Unspecified menopausal and perimenopausal disorder (principal)
CPT/HCPCS: 77080; 77081

== ENCOUNTER → 2024-01-26 11:09 | Outpatient (CLI) | payer MEDICARE, OTHER, SELFPAY ==
[2024-01-26 12:03] LABS: Hemoglobin A1C% w Est Avg Glu 5.4 % (4.0-6.0)
[2024-01-26 12:17] LABS: Alanine Aminotransferase 27 IU/L (<35); Albumin 4.1 g/dL (3.5-5.0); Albumin Globulin Ratio 1.5 (1.0-2.8); Alkaline Phosphatase 120 U/L (38-126); Aspartate Aminotransferase 26 IU/L (14-36); Bilirubin Total 0.6 mg/dL (0.2-1.3); Blood Urea Nitrogen 12 mg/dL (7-17); Calcium 9.4 mg/dL (8.4-10.2); Carbon Dioxide 28 mmol/L (22-32); Chloride 106 mmol/L (98-107); Estimated Glomerular Filt Rate > 60 mL/min (>60); Globulin 2.8 g/dL (1.7-4.1); Glucose 98 mg/dL (80-110); HEMOLYSIS < 15 (0-50); Potassium 4.7 mmol/L (3.4-5.1); Sodium 140 mmol/L (137-145); Total Protein 6.9 g/dL (6.3-8.2)
[2024-01-26 12:22] LABS: High Sensitivity CRP - Cardiac 5.4 mg/L (1.0-3.0)
[2024-01-28 18:12] LABS: Cholesterol, Total 183 mg/dL (100-199); HDL-Cholesterol 56 mg/dL (>39); LDL Particle 1162 nmol/L (<1000); LDL Size 21.4 nm (>20.5); LDL-Cholsterol 105 mg/dL (0-99); LP-IR Score 55 (<=45); Small LDL- Particle 489 nmol/L (<=527); Triglycerides 127 mg/dL (0-149)
== END ==
PROVIDERS: PCP Family Medicine; Referring Provider Family Medicine; Visit Provider Family Medicine
DX: R53.83 Other fatigue (principal); E66.01 Morbid (severe) obesity due to excess calories; R68.89 Other general symptoms and signs; I10 Essential (primary) hypertension; I47.10 Supraventricular tachycardia, unspecified; R73.9 Hyperglycemia, unspecified
CPT/HCPCS: 36415; 80053; 80061; 83036; 83704; 86140

== ENCOUNTER → 2024-09-24 09:48 | Outpatient (CLI) | payer MEDICARE, OTHER, SELFPAY ==
[2024-09-24 11:19] LABS: Add Manual Diff / Slide Review NO; Basophils Absolute Auto 100 /uL (0-100); Basophils Percent Auto 0.9 % (0-2); Eosinophils Absolute Auto 200 /uL (0-450); Eosinophils Percent Auto 2.3 % (2-4); Hematocrit 35.3 % (36-46); Hemoglobin 12.1 g/dL (12.0-16.0); Lymphocytes Absolute Auto 2000 /uL (1100-4500); Mean Corpuscular HGB Conc 34.1 % (30-36); Mean Corpuscular Hemoglobin 32.9 PG (26-34); Mean Corpuscular Volume 96.3 fL (80-100); Monocytes Absolute Auto 400 /uL (0-900); Monocytes Percent Auto 5.8 % (3-14); Neutrophils Absolute Auto 4100 /uL (1500-7000); Platelet Count 367 X10^3/uL (150-400); Red Blood Cell Count 3.67 X10^6/uL (4.0-5.2); Red Cell Distribution Width 12.8 % (11.6-14.8); White Blood Cell Count 6.7 X10^3/uL (4.5-11.0)
[2024-09-24 12:03] LABS: Cholesterol 172 mg/dL (140-199); HDL Cholesterol 46 mg/dL (40-60); LDL Cholesterol Calculated 102 mg/dL (<100); Triglycerides 121 mg/dL (35-150)
[2024-09-24 12:38] LABS: TSH w/ Reflex to FT4 1.66 uIU/mL (0.47-4.68)
[2024-09-26 14:36] LABS: Cholesterol, Total 175 mg/dL (100-199); HDL-Cholesterol 50 mg/dL (>39); HDL-Particle (Total) 36.6 umol/L (>=30.5); Historical Reading Comment: (.); LDL Particle 1148 nmol/L (<1000); LDL-Cholsterol 104 mg/dL (0-99); LP-IR Score 61 (<=45); Small LDL- Particle 463 nmol/L (<=527); Triglycerides 114 mg/dL (0-149)
== END ==
PROVIDERS: PCP Family Medicine; Referring Provider Family Medicine; Visit Provider Family Medicine
DX: R53.83 Other fatigue (principal); I10 Essential (primary) hypertension; E66.01 Morbid (severe) obesity due to excess calories; I73.9 Peripheral vascular disease, unspecified; I95.1 Orthostatic hypotension; R68.89 Other general symptoms and signs; E03.9 Hypothyroidism, unspecified; I47.10 Supraventricular tachycardia, unspecified; E78.00 Pure hypercholesterolemia, unspecified; J43.9 Emphysema, unspecified; F33.42 Major depressive disorder, recurrent, in full remission
CPT/HCPCS: 36415; 80061; 83704; 84443; 85025; 86140

== ENCOUNTER → 2024-10-29 13:41 | Outpatient (CLI) | payer MEDICARE, OTHER, SELFPAY ==
--- NOTE | 2024-10-29 13:43 | DI.CT.S_ITS ---
PROCEDURE: CT LUNG LOW DOSE SCREENING INDICATIONS: Lung cancer screening TECHNIQUE: Noncontrast 2.0-2.5 mm thick sections acquired from the pulmonary apices to the posterior costophrenic angles. 7 mm thick axial MIP, and 5 mm coronal and sagittal reformats were then acquired. For radiation dose reduction, the following was used: automated exposure control, adjustment of mA and/or kV according to patient size. COMPARISON: [facility], CT, CT LUNG LOW DOSE SCREENING, 10/26/2023, 14:43. FINDINGS: Image quality: Diagnostic. Lower Neck: No enlarged lymph nodes. Thyroid: No thyroid nodules which require sonographic follow up, per consensus guidelines. Axillae: No enlarged lymph nodes. Chest Wall: Unremarkable. Bones: No aggressive appearing bony lesions. Lungs and Pleura: No pneumothorax or pleural effusions. No consolidations or suspicious pulmonary nodules. Again noted are few scattered subpleural nodules measures 2-3 mm in size in antral lateral right upper lobe series 3, image 126, lateral right upper lobe series 3, image 119 unchanged from prior study. Previously described 4 mm subpleural nodule in lateral right lower lobe near right lung base is no longer seen. No new pulmonary nodule is seen. Heart: Heart size is normal. No pericardial effusion. Thoracic Vessels: The aorta and pulmonary arteries demonstrate normal size. Mediastinum and Yeni: No enlarged lymph nodes. Esophagus: No wall thickening. Small to moderate sized hiatal hernia. Upper Abdomen: Visualized upper abdomen solid organs and bowel loops appear normal. IMPRESSION: No suspicious pulmonary nodules. Previously noted 2-3 mm benign-appearing nodules are all stable . Previously described 4 mm nodular density at right lung base is no longer seen. LUNG-RADS 2; continued annual screening, if eligible. Clinically Significant Non-pulmonary Findings: None. Dictated by: Kamron Nelson M.D. on 10/29/2024 at 20:32 Approved by: Kamron Nelson M.D. on 10/29/2024 at 20:36
--- NOTE | 2024-10-29 13:44 | DI.MG.S_ITS ---
BILATERAL DIGITAL SCREENING MAMMOGRAM 3D/2D WITH CAD: 10/29/2024 CLINICAL: Routine screening. Comparison is made to exams dated: 10/26/2023 mammogram, 10/18/2022 mammogram, and 08/24/2021 mammogram - [facility]. There are scattered areas of fibroglandular density (category b / 25%-50% glandular tissue). Current study was also evaluated with a Computer Aided Detection (CAD) system. No significant masses, calcifications, or other findings are seen in either breast. There has been no significant interval change. IMPRESSION: NEGATIVE There is no mammographic evidence of malignancy. A 1 year screening mammogram is recommended. Based on the Tyrer Cuzick model (a risk assessment model) the patient's lifetime risk is 3.8% and her 10 year risk is 3.1%. According to the ACR, ACS, and NCCN guidelines, an annual breast MRI exam along with mammogram is recommended if the patient's lifetime risk is 20% or greater. This exam was interpreted at Station ID: [id number]. NOTE: For mammograms, a report in lay terms will be sent to the patient. Approximately 15% of breast malignancies will not be visualized mammographically. In the management of a palpable breast mass, a negative mammogram must not discourage biopsy of a clinically suspicious lesion. Electronically Signed By: Martin lau/leonardo:10/29/2024 16:25:49 letter sent: Normal Exam ACR BI-RADS Category 1: Negative
== END ==
LOC: CT 13:42
PROVIDERS: PCP Family Medicine; Referring Provider Family Medicine; Visit Provider Family Medicine
DX: Z12.2 Encounter for screening for malignant neoplasm of respiratory organs (principal); Z12.31 Encounter for screening mammogram for malignant neoplasm of breast; R91.8 Other nonspecific abnormal finding of lung field; F17.210 Nicotine dependence, cigarettes, uncomplicated; K44.9 Diaphragmatic hernia without obstruction or gangrene
CPT/HCPCS: 71271; 77063; 77067

== ENCOUNTER 2024-12-18 10:23 | Day surgery (SDC) | payer MEDICARE, OTHER, SELFPAY ==
[2024-12-18 13:10] VITALS: BP 147/85; PULSE 80; RESP 16; TEMP 36.2; O2SAT 98
[2024-12-18] MEDS: SODIUM CHLORIDE 0.9% 1,000 ML 84 ML IV (13:29)
--- NOTE | 2024-12-18 14:05 | P.HP_ITS ---
History of Present Illness History of Present Illness Date Patient Seen: 12/18/24 Time Patient Seen: 14:06 Chief complaint: Colonoscopy Narrative: Colonoscopy - q 5 yrs Positive FH of colon cancer Maternal Grand Mother from colon cancer at 81 yo. [facility] Medical History (Updated 12/18/24 @ 14:07 by Shirley Newman MD) Tubular adenoma Essential hypertension Stage 3a chronic kidney disease (CKD) History of colon polyps History of degenerative joint disease Hypothyroidism Hypertension Cardiac arrhythmia Osteoarthritis Plantar warts Eczema Asthma Surgical History Anesthesia History of colonoscopy History of ectopic Colon polyps (~2007) History of cataract removal with insertion of prosthetic lens History of hip replacement (~2012) Status post hysterectomy (~2005) Status post cholecystectomy (~1989) History of third molar tooth extraction (~1971) Family History Father Alcoholism Heart disease Hypertension Stroke Grandmother Colorectal cancer Mother Colon polyps Social History household members: spouse Smoking Status: Former smoker Tobacco: How many years used: 22 second hand exposure: No alcohol intake: former substance use type: does not use Meds Home Medications and Allergies Home Medications Medication Instructions Recorded Confirmed Type biotin 5 mg tablet ##0 05/23/13 12/14/23 History magnesium 200 mg tablet 400 mg PO DAILY 03/07/23 10/01/24 History albuterol sulfate 90 mcg/actuation 2 inh inhalation Q4-6H PRN 07/13/23 12/18/24 Rx aerosol inhaler (Ventolin HFA) shortness of breath or wheezing #1 ea calcium carbonate-vitamin D3 PO 07/18/23 10/01/24 History flaxseed oil miscellaneous 07/18/23 10/01/24 History multivitamin with iron 1 tab PO DAILY 07/18/23 10/01/24 History diltiazem HCl 120 mg capsule,24 120 mg PO DAILY 12/09/23 12/18/24 History hr,extended release coenzyme Q10 150 mg capsule 150 mg PO DAILY 12/15/23 10/01/24 History atorvastatin 20 mg tablet 20 mg PO DAILY #90 tabs 06/11/24 12/18/24 Rx fluoxetine 20 mg capsule 20 mg PO DAILY #90 caps 07/30/24 12/18/24 Rx levothyroxine 112 mcg tablet 112 mcg PO DAILY #90 tabs 09/26/24 12/18/24 Rx ascorbic acid (vitamin C) 1,000 mg 1 g PO DAILY 10/01/24 10/01/24 History tablet (Vitamin C) vitamin K2 100 mcg capsule 100 mcg PO DAILY 10/01/24 10/01/24 History sodium,potassium,mag sulfates 17.5 See Rx Instructions PO .COMPLEX 11/08/24 Rx gram-3.13 gram-1.6 gram oral soln #354 mL (Suprep Bowel Prep Kit) fluticasone furoate 100 1 inh inhalation DAILY #90 ea 11/16/24 Rx mcg/actuation blister powder for inhalation (Arnuity Ellipta) Allergies Allergy/AdvReac Type Severity Reaction Status Date / Time Penicillins [PENICILLINS] Allergy Unknown Childhood Verified 12/18/24 13:08 Reaction hydrocodone [HYDROCODONE] AdvReac Mild NAUSEA, Verified 12/18/24 13:08 DIZZINESS Review of Systems Review of Systems Narrative: Colonoscopy - q 5 yrs Positive FH of colon cancer Maternal Grand Mother from colon cancer at 81 yo. ROS: Yes All systems reviewed with the patient and are negative except as otherwise documented Exam Vital Signs (past 8 hours): - 12/18/24 13:10 Temperature 97.2 F L Pulse Rate 80 Respiratory Rate 16 Blood Pressure 147/85 H Pulse Oximetry 98 Oxygen Delivery Method Room Air Oxygen Delivery Method Room Air Narrative Exam Narrative: Obese, but Normal abd. Assessment & Plan Assessment and plan (1) Screening for colon cancer: Problem details: Colonoscopy - q 5 yrs Positive FH of colon cancer Maternal Grand Mother from colon cancer at 81 yo. Status: Acute Time-Based Coding :: [TOTAL MINUTES] spent with patient and on the chart (including review of chart, obtaining history, exam, reviewing outside data, placing orders, documenting exam and treatment plan, and counseling patient) on [DATE]. [employer] Project Manager Document charge(s): Yes
--- NOTE | 2024-12-18 14:33 | PM.OP.COLON ---
Operative Date/Time/Diagnoses Date of procedure: 12/18/24 Time of procedure: 14:33 Procedure & Clinicians Surgeon: Shirley Newman Procedure Notes Procedure in detail: OPERATIVE / PROCEDURE NOTE Naty Pacheco, 1950, 74,Female,CSN: [id number] 12/18/24 PREOPERATIVE DIAGNOSIS: Positive FH of colon cancer, Maternal Grand Mother, from colon cancer at 81 yr. POSTOPERATIVE DIAGNOSIS: Same + Per the colonoscopy to the cecum: Normal colon, NO divertic, and NO polyps, but grade IV internal hemorrhoids. . PROCEDURE DONE: Colonoscopy to the cecum. ANESTHESIA: MAC per Anesthesia. COMPLICATIONS: None. SPECIMENS: None. ESTIMATED BLOOD LOSS: NONE. CONDITION: Stable to the PACU. OPERATIVE DESCRIPTION: After proper informed consent was signed by the patient knowing all the risks, benefits, and potential complications and possible alternatives of the procedure, the patient was appropriately identified. Naty Pacheco underwent a bowel prep that was very efficient yesterday, and the colon was clean. After institution of sedation on her left lateral decubitus position, a rectal exam was performed. Normal rectal and anal tone was found. The Olympus colonoscope was placed into her anus and under direct visualization was advanced from the rectum to the rectosigmoid to the sigmoid to the left colon, splenic flexure, transverse colon, hepatic flexure, ascending colon, and all the way to the cecum. Circumferential visualization of the mucosa was possible. The appendix aperture was noted. The ileocecal valve was noted. No large tumors. No ulcers. No inflammatory bowel disease changes were noted. No diverticulae noted in the sigmoid colon. In the rectum, the scope was retroflexed, and Grade IV internal hemorrhoids were noted. The scope was straightened back again. The colon was decompressed, and the scope was retracted out uneventfully. The patient tolerated the procedure well without any complications, was sent to the PACU in stable condition. RECOMMENDATIONS: Continue high-fiber diet - 30-40 gm/day with daily fiber supplementation. F/u colonoscopy in 5 yrs.
[2024-12-18 15:23] VITALS: BP 91/55; PULSE 66; RESP 17; TEMP 36.1; O2SAT 96
[2024-12-18 15:28] VITALS: BP 83/53; PULSE 70; RESP 16; O2SAT 97
[2024-12-18 15:33] VITALS: BP 117/65; PULSE 73; RESP 12; O2SAT 97
[2024-12-18 15:38] VITALS: BP 117/65; PULSE 73; RESP 13; O2SAT 98
== END 2024-12-18 15:45 | disposition home or self-care (01) ==
PROVIDERS: PCP Family Medicine; Referring Provider Surgery; Visit Provider Surgery
PROC: 0DJD8ZZ Inspection of Lower Intestinal Tract, Via Natural or Artificial Opening Endoscopic (ICD-10-PCS; CPT 45378; principal; 2024-12-18 11:30)
DX: Z12.11 Encounter for screening for malignant neoplasm of colon (principal); Z80.0 Family history of malignant neoplasm of digestive organs; Z86.0101 Personal history of adenomatous and serrated colon polyps; K64.3 Fourth degree hemorrhoids; E03.9 Hypothyroidism, unspecified; I12.9 Hypertensive chronic kidney disease with stage 1 through stage 4 chronic kidney disease, or unspecified chronic kidney disease; N18.31 Chronic kidney disease, stage 3a; E66.9 Obesity, unspecified; Z68.35 Body mass index [BMI] 35.0-35.9, adult; Z87.891 Personal history of nicotine dependence
CPT/HCPCS: G0105; J2704

== ENCOUNTER → 2025-03-20 10:09 | Outpatient (CLI) | payer MEDICARE, OTHER, SELFPAY ==
[2025-03-20 11:38] LABS: Add Manual Diff / Slide Review NO; Basophils Absolute Auto 100 /uL (0-100); Eosinophils Absolute Auto 100 /uL (0-450); Eosinophils Percent Auto 2.1 % (2-4); Hematocrit 34.2 % (36-46); Hemoglobin 11.7 g/dL (12.0-16.0); Lymphocytes Absolute Auto 1700 /uL (1100-4500); Lymphocytes Percent Auto 27.1 % (25-40); Mean Corpuscular HGB Conc 34.3 % (30-36); Mean Corpuscular Hemoglobin 33.4 PG (26-34); Mean Corpuscular Volume 97.4 fL (80-100); Monocytes Absolute Auto 400 /uL (0-900); Monocytes Percent Auto 6.7 % (3-14); Neutrophils Absolute Auto 3900 /uL (1500-7000); Neutrophils Percent Auto 63.1 % (50-75); Platelet Count 350 X10^3/uL (150-400); Red Blood Cell Count 3.51 X10^6/uL (4.0-5.2); Red Cell Distribution Width 13.1 % (11.6-14.8); White Blood Cell Count 6.2 X10^3/uL (4.5-11.0)
[2025-03-20 12:03] LABS: Alanine Aminotransferase 21 IU/L (<35); Albumin Globulin Ratio 1.7 (1.0-2.8); Alkaline Phosphatase 91 U/L (38-126); Aspartate Aminotransferase 25 IU/L (14-36); Bilirubin Total 0.5 mg/dL (0.2-1.3); Blood Urea Nitrogen 20 mg/dL (7-17); Calcium 9.2 mg/dL (8.4-10.2); Carbon Dioxide 28 mmol/L (22-32); Chloride 103 mmol/L (98-107); Globulin 2.4 g/dL (1.7-4.1); Glucose 93 mg/dL (70-99); HEMOLYSIS < 15 (0-50); Potassium 4.6 mmol/L (3.4-5.1); Sodium 136 mmol/L (137-145); Total Protein 6.4 g/dL (6.3-8.2)
[2025-03-20 12:12] LABS: BUN Creatinine Ratio 10.9 (6-22); Estimated Glomerular Filt Rate 28 mL/min (>60)
[2025-03-20 12:33] LABS: TSH w/ Reflex to FT4 2.57 uIU/mL (0.47-4.68)
[2025-03-20 12:38] LABS: Ferritin 76 ng/mL (11-264)
[2025-03-20 12:52] LABS: Vitamin B12 663 pg/mL (239-931)
[2025-03-22 13:10] LABS: Cholesterol, Total 178 mg/dL (100-199); HDL-Cholesterol 62 mg/dL (>39); HDL-Particle (Total) 39.6 umol/L (>=30.5); LDL Particle 1207 nmol/L (<1000); LDL Size 21.5 nm (>20.5); LDL-Cholsterol 100 mg/dL (0-99); LP-IR Score 34 (<=45); Small LDL- Particle 463 nmol/L (<=527); Triglycerides 86 mg/dL (0-149)
== END ==
PROVIDERS: PCP Family Medicine; Referring Provider Family Medicine; Visit Provider Family Medicine
DX: I95.1 Orthostatic hypotension (principal); I73.9 Peripheral vascular disease, unspecified; E03.9 Hypothyroidism, unspecified; E78.5 Hyperlipidemia, unspecified; I47.10 Supraventricular tachycardia, unspecified
CPT/HCPCS: 36415; 80053; 80061; 82607; 82728; 83704; 84443; 85025

== ENCOUNTER → 2025-03-27 10:38 | Outpatient (CLI) | payer MEDICARE, OTHER, SELFPAY | LOC: LAB 10:40 | PROVIDERS: PCP Family Medicine; Referring Provider Family Medicine; Visit Provider Family Medicine | DX: E78.00 Pure hypercholesterolemia, unspecified (principal) | CPT/HCPCS: 36415; 86140 ==

== ENCOUNTER → 2025-04-01 14:57 | Outpatient (CLI) | payer MEDICARE, OTHER, SELFPAY ==
[2025-04-01 15:50] LABS: Blood Urea Nitrogen 23 mg/dL (7-17); Calcium 9.1 mg/dL (8.4-10.2); Carbon Dioxide 26 mmol/L (22-32); Chloride 100 mmol/L (98-107); Glucose 102 mg/dL (70-99); HEMOLYSIS < 15 (0-50); Potassium 4.7 mmol/L (3.4-5.1); Sodium 135 mmol/L (137-145)
[2025-04-01 16:10] LABS: BUN Creatinine Ratio 9.4 (6-22); Estimated Glomerular Filt Rate 20 mL/min (>60)
== END ==
PROVIDERS: PCP Family Medicine; Referring Provider Family Medicine; Visit Provider Family Medicine
DX: I73.9 Peripheral vascular disease, unspecified (principal); I95.1 Orthostatic hypotension; E03.9 Hypothyroidism, unspecified; E78.5 Hyperlipidemia, unspecified; D64.9 Anemia, unspecified
CPT/HCPCS: 36415; 80048

== ENCOUNTER → 2025-04-10 10:52 | Outpatient (CLI) | payer MEDICARE, OTHER, SELFPAY ==
[2025-04-10 12:02] LABS: BUN Creatinine Ratio 12.3 (6-22); Blood Urea Nitrogen 15 mg/dL (7-17); Calcium 9.3 mg/dL (8.4-10.2); Carbon Dioxide 28 mmol/L (22-32); Chloride 101 mmol/L (98-107); Estimated Glomerular Filt Rate 47 mL/min (>60); Glucose 97 mg/dL (70-99); HEMOLYSIS < 15 (0-50); Potassium 4.6 mmol/L (3.4-5.1); Sodium 137 mmol/L (137-145)
[2025-04-13 02:07] LABS: Cystatin C 1.38 mg/L (0.78-1.15)
== END ==
PROVIDERS: PCP Family Medicine; Referring Provider Family Medicine; Visit Provider Family Medicine
DX: R94.4 Abnormal results of kidney function studies (principal)
CPT/HCPCS: 36415; 80048; 82610

== ENCOUNTER → 2025-05-17 10:59 | Outpatient (CLI) | payer MEDICARE, OTHER, SELFPAY ==
[2025-05-17 12:30] LABS: Hematocrit 34.7 % (36-46); Hemoglobin 11.8 g/dL (12.0-16.0); Mean Corpuscular HGB Conc 33.9 % (30-36); Mean Corpuscular Hemoglobin 33.4 PG (26-34); Mean Corpuscular Volume 98.5 fL (80-100); Platelet Count 326 X10^3/uL (150-400); Red Blood Cell Count 3.52 X10^6/uL (4.0-5.2); Red Cell Distribution Width 12.7 % (11.6-14.8); White Blood Cell Count 6.5 X10^3/uL (4.5-11.0)
[2025-05-17 13:11] LABS: Free T3, Triiodothyronine Free 3.32 pg/mL (2.77-5.27)
[2025-05-17 13:25] LABS: Thyroid Stimulating Hormone 0.638 uIU/mL (0.47-4.68)
[2025-05-17 13:31] LABS: Ferritin 67 ng/mL (11-264)
== END ==
PROVIDERS: PCP Family Medicine; Referring Provider Family Medicine; Visit Provider Family Medicine
DX: E03.9 Hypothyroidism, unspecified (principal); D64.9 Anemia, unspecified; E78.5 Hyperlipidemia, unspecified; I95.1 Orthostatic hypotension; I73.9 Peripheral vascular disease, unspecified
CPT/HCPCS: 36415; 82728; 84443; 84481; 85027